=== PATIENT | male | born 1955 | race Caucasian/White ===

== ENCOUNTER → 2018-01-03 15:18 | Outpatient (CLI) | payer OTHER, SELFPAY ==
[2018-01-03 16:20] LABS: BUN Creatinine Ratio 23.3 (6-22); Blood Urea Nitrogen 21 mg/dL (9-20); Calcium 9.3 mg/dL (8.4-10.2); Carbon Dioxide 26 mmol/L (22-32); Chloride 103 mmol/L (98-107); Estimated Glomerular Filt Rate > 60.0 mL/min (>60); Glucose 108 mg/dL (80-110); HEMOLYSIS 16 (0-50); Sodium 140 mmol/L (137-145)
== END ==
PROVIDERS: Family Provider Family Medicine; PCP Family Medicine; Visit Provider Family Medicine
DX: R59.0 Localized enlarged lymph nodes (principal)
CPT/HCPCS: 36415; 80048

== ENCOUNTER → 2018-01-05 08:59 | Outpatient (CLI) | payer OTHER, SELFPAY ==
--- NOTE | 2018-01-05 | DI.CT.S_ITS ---
PROCEDURE: CT SOFT TISSUE NECK W CON INDICATIONS: CERVICAL LYMPHADENOPATHY TECHNIQUE: After the administration of intravenous contrast, 3.0 mm axial sections acquired from the sella to the aortic arch. Additional oblique axial 3.0 mm sections acquired through the pharynx. 3 mm thick coronal and sagittal reformats were generated. For radiation dose reduction, the following was used: automated exposure control. COMPARISON: None. FINDINGS: Image quality: Excellent. Lymph nodes: No enlarged lymph nodes seen throughout the neck. Vessels: Visualized vasculature appears patent. Neck spaces: The oropharynx, nasopharynx, and pharynx demonstrate no mucosal lesions. The vocal cords, false vocal cords, pyriform sinuses, epiglottis, vallecula, and tongue base all appear normal. Extramucosal spaces appear unremarkable. Glands: The area of clinical concern is marked on the skin. This corresponds to a lamellated stone along the superior anterior aspect of the left submandibular gland that measures 19 x 10 mm in greatest axial dimension, with a craniocaudal extent of 15 mm. The left submandibular gland is somewhat hypoenhancing compared to the normal appearing right submandibular gland. The parotid glands demonstrating normal, symmetric appearance. Thyroid gland demonstrates no significant CT abnormality. Miscellaneous: Visualized brain and orbits appear normal. Lung apices appear clear. Superficial soft tissues appear normal. Bones: No suspicious bony lesions. Visualized sinuses and mastoids appear unremarkable. IMPRESSION: 19 mm stone seen associated with the left submandibular gland. No enlarged lymph nodes are seen. Dictated by: Ilya Ortez M.D. on 01/05/2018 at 10:17 Approved by: Ilya Ortez M.D. on 01/05/2018 at 10:23
== END ==
PROVIDERS: Family Provider Family Medicine; PCP Family Medicine; Visit Provider Family Medicine
DX: K11.5 Sialolithiasis (principal); R59.0 Localized enlarged lymph nodes
CPT/HCPCS: 70491; Q9967

== ENCOUNTER → 2020-08-09 10:44 | Outpatient (CLI) | payer MEDICARE, SELFPAY ==
[2020-08-09] MEDS: COVID-19 VACC(MODERNA-1)/PF 100 MCG/0.5 ML VIAL IM (10:49)
== END ==
PROVIDERS: Visit Provider Internal Medicine
DX: Z23 Encounter for immunization (principal)
CPT/HCPCS: 0011A; 91301

== ENCOUNTER → 2020-09-05 08:41 | Outpatient (CLI) | payer MEDICARE, SELFPAY ==
[2020-09-05] MEDS: COVID-19 VACC #2, MRNA(MOD) 100 MCG/0.5 ML VIAL IM (08:46)
== END ==
PROVIDERS: Visit Provider Internal Medicine
DX: Z23 Encounter for immunization (principal)
CPT/HCPCS: 0012A; 91301

== ENCOUNTER → 2021-09-29 11:17 | Outpatient (CLI) | payer OTHER, SELFPAY ==
--- NOTE | 2021-09-29 | DI.MRI.S_ITS ---
PROCEDURE: MR LUMBAR SPINE WO CON INDICATIONS: Radiculopathy, lumbar region TECHNIQUE: Noncontrast sagittal T1 spin echo and T2 fast echo, sagittal STIR, axial T1 and T2 fast spin echo through the lumbar spine. In cases with scoliosis, additional coronal T2 fast spin echo may be performed. COMPARISON: None. FINDINGS: Image quality: Excellent. 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 For purposes of this exam, vertebral bodies are labeled 1 through 5. Prior to any surgical intervention, full x-ray spine series is recommended for more accurate assessment and numbering. There is grade 1 anterolisthesis of L4 on L5 measuring 10 mm. Bone Marrow: Marrow is of normal overall signal. Mild reactive endplate changes are present at L4-5. No acute vertebral body compression fractures. Spinal Cord: Conus medullaris terminates at the L1-L2 level. Visualized cord demonstrates normal signal and size. Paraspinous Soft Tissues: No paravertebral masses. Discs: Moderate to severe desiccation is present at L4-5, mild at L2-3, L3-4. L1-L2: No disc bulge, spinal stenosis or foraminal narrowing. Mild facet hypertrophy. L2-L3: Mild disc bulge without spinal stenosis. [id number] bilateral foraminal narrowing with facet and ligamentum flavum hypertrophy. L3-L4: Mild disc bulge without spinal stenosis. Moderate bilateral foraminal narrowing. There appears to be a right anterior medial facet joint cyst projecting along the lateral aspect of the spinal canal measuring approximately 3 mm. L4-L5: Mild disc bulge with mild spinal stenosis. Severe bilateral foraminal narrowing, right greater than left with flattening of the exiting L4 nerve roots. There is significant facet and ligamentum flavum hypertrophy. L5-S1: Mild disc bulge without spinal stenosis. Moderate left and [id number] right foraminal narrowing with facet and ligamentum flavum hypertrophy. IMPRESSION: Multilevel degenerative changes. Multilevel foraminal narrowing most severe at L4-5 secondary to anterolisthesis as well as facet/ligamentum flavum arthropathy. Mild spinal stenosis L4-5 secondary to disc bulge with contributing affective facet/ligamentum flavum arthropathy. Dictated by: Margo Jernigan M.D. on 09/29/2021 at 16:39 Approved by: Margo Jernigan M.D. on 09/29/2021 at 16:45
== END ==
PROVIDERS: PCP Family Medicine; Referring Provider Family Medicine; Visit Provider Family Medicine
DX: M47.26 Other spondylosis with radiculopathy, lumbar region (principal); M47.27 Other spondylosis with radiculopathy, lumbosacral region; M48.061 Spinal stenosis, lumbar region without neurogenic claudication; M48.07 Spinal stenosis, lumbosacral region; M43.16 Spondylolisthesis, lumbar region; M51.16 Intervertebral disc disorders with radiculopathy, lumbar region
CPT/HCPCS: 72148

== ENCOUNTER → 2021-12-12 06:42 | Outpatient (CLI) | payer OTHER, SELFPAY ==
--- NOTE | 2021-12-12 | DI.MRI.S_ITS ---
PROCEDURE: MR LUMBAR SPINE WO CON INDICATIONS: Spondylolisthesis, lumbar region TECHNIQUE: Noncontrast sagittal T1 spin echo and T2 fast echo, sagittal STIR, and T2 fast spin echo through the lumbar spine. In cases with scoliosis, additional coronal T2 fast spin echo may be performed. COMPARISON: [facility], MR, MR LUMBAR SPINE WO CON, 09/29/2021, 11:21. FINDINGS: Image quality: Excellent. Alignment and Curvature: There is grade 1 anterolisthesis of L4 on L5 measuring 10 mm, unchanged. There is an overall appearance of transitional anatomy with vertebral body is labeled 1 through 5 in keeping with prior nomenclature. Prior to any surgical intervention, full x-ray spine series is recommended as clinically indicated for further assessment and numbering. Bone Marrow: Marrow is of normal overall signal. Mild Modic I reactive endplate changes are present at L4-5. No acute vertebral body compression fractures. Spinal Cord: Conus medullaris terminates at the L1-L2 level. Visualized cord demonstrates normal signal and size. Paraspinous Soft Tissues: No paravertebral masses. Discs: Severe desiccation is present at L4-5, mild to moderate throughout remainder of the lumbar spine. L1-L2: No disc bulge, spinal stenosis or foraminal narrowing. Mild facet and ligamentum flavum hypertrophy. L2-L3: Mild disc bulge without spinal stenosis. [id number] bilateral foraminal narrowing, right greater than left with facet and ligamentum flavum hypertrophy. Minimal epidural lipomatosis. No interval change. L3-L4: Mild disc bulge without spinal stenosis. Moderate bilateral foraminal narrowing, right greater than left. Previously noted 3 mm focus of increased T2 signal along the right anterior medial aspect of the facet joint is unchanged. Facet and ligamentum flavum hypertrophy are present. Stable posterior left facet joint cyst. L4-L5: Mild disc bulge with superimposed posterior protrusion. There is interval appearance of posterior left paracentral signal suggestive of a 2nd protrusion or potentially extrusion. There is compromise the lateral recesses bilaterally. There is compression the exiting L4 nerve roots. Facet and ligamentum flavum hypertrophy are present. L5-S1: Mild disc bulge of spinal stenosis. Moderate bilateral foraminal narrowing, slightly progressive the right compared to prior exam. Facet and ligamentum flavum hypertrophy are present. IMPRESSION: Multilevel degenerative changes. Disc bulges present L4-5 with likely superimposed posterior central protrusion. There is a suggestion of extrusion particularly in the left posterior aspect at this level not as well seen on prior exam. There is compromise the below lateral recesses bilaterally. Multilevel foraminal narrowing most severe at L4-5 and L5-S1 secondary to facet/ligamentum flavum arthropathy. Dictated by: Margo Jernigan M.D. on 12/12/2021 at 8:43 Approved by: Margo Jernigan M.D. on 12/12/2021 at 9:24
== END ==
PROVIDERS: PCP Family Medicine; Referring Provider Neurological Surgery; Visit Provider Neurological Surgery
DX: M43.16 Spondylolisthesis, lumbar region; M47.816 Spondylosis without myelopathy or radiculopathy, lumbar region; M51.26 Other intervertebral disc displacement, lumbar region; M48.061 Spinal stenosis, lumbar region without neurogenic claudication; M48.07 Spinal stenosis, lumbosacral region; M47.817 Spondylosis without myelopathy or radiculopathy, lumbosacral region; R29.898 Other symptoms and signs involving the musculoskeletal system; R20.0 Anesthesia of skin
CPT/HCPCS: 72148

== ENCOUNTER → 2024-01-14 12:44 | Outpatient (CLI) | payer OTHER, SELFPAY ==
--- NOTE | 2024-01-14 12:45 | DI.MRI.S_ITS ---
PROCEDURE: MR SHOULDER LT WO CON INDICATIONS: Primary osteoarthritis, left shoulder TECHNIQUE: Noncontrast oblique coronal T2 fast spin echo with fat saturation, oblique sagittal T1 spin echo and T2 fast spin echo with fat saturation, axial T1 spin echo and T2 fast spin echo with fat saturation through the shoulder. COMPARISON: [facility], CR, XR SHOULDER 2+ VIEWS LEFT, 08/27/2023, 9:33. FINDINGS: Image quality: Excellent. Rotator cuff: Low-grade partial bursal sided tearing of the supraspinatus tendon at the distal insertion superimposed on moderate supraspinatus and infraspinatus tendinosis. Teres minor tendon is intact. Mild subscapularis tendinosis. The rotator cuff musculature is normal in bulk. Bones and bursae: Osseous edema surrounding the acromioclavicular joint is most likely secondary to moderate to severe degenerative changes given associated joint space narrowing, subchondral cystic changes, and marginal osteophyte formation. Recent acromioclavicular separation injury or chronic repetitive microtrauma are considered less likely. Mild surface cartilage irregularity is seen in the glenohumeral joint. Small marginal osteophytes in the glenoid rim. Small amount of fluid is seen in the subacromial/subdeltoid bursa. Small glenohumeral effusion. Capsule and soft tissues: Mildly diminutive appearance of the posterior to posterior inferior labrum is suspicious for chronic nondisplaced tearing. Moderate proximal biceps long head tendinosis. Partial infiltration of the rotator interval fat. Anterior band of the inferior glenohumeral ligament is mildly thickened. IMPRESSION: 1. Low-grade partial bursal sided tearing of the supraspinatus tendon at the distal insertion superimposed on moderate supraspinatus and infraspinatus tendinosis. Mild subscapularis tendinosis. 2. Moderate proximal biceps long head tendinosis. 3. Chronic nondisplaced tearing of the posterior to posterior inferior labrum. 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 4. Moderate to severe acromioclavicular joint osteoarthrosis with surrounding osseous edema. 5. Small subacromial/subdeltoid bursal effusion or mild bursitis. 6. Partial effacement of the rotator interval fat and mild thickening of the inferior glenohumeral ligament are nonspecific, but can be seen in the setting of the clinical syndrome of adhesive capsulitis. Approved by: Shabbir Woodson M.D. on 01/14/2024 at 16:19
== END ==
LOC: MRI 12:45
PROVIDERS: PCP Orthopaedic Surgery; Referring Provider Orthopaedic Surgery; Visit Provider Orthopaedic Surgery
DX: M19.012 Primary osteoarthritis, left shoulder (principal); M75.112 Incomplete rotator cuff tear or rupture of left shoulder, not specified as traumatic; M67.922 Unspecified disorder of synovium and tendon, left upper arm; M67.912 Unspecified disorder of synovium and tendon, left shoulder; M94.212 Chondromalacia, left shoulder; M75.52 Bursitis of left shoulder; S43.492A Other sprain of left shoulder joint, initial encounter
CPT/HCPCS: 73221